=== PATIENT | female | born 1955 | race Caucasian/White ===

== ENCOUNTER 2017-02-24 21:35 | Observation (INO) ==
[2017-02-24] MEDS ORDERED: 0.9 % Sodium Chloride 1,000 ML IVC ONE (21:38)
[2017-02-24] MEDS ORDERED: Ketorolac 15 MG/ML VIAL IVP ONE (22:35)
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
[2017-02-24 22:53] LABS: Alanine Aminotransferase 15 Units/L (0-55); Albumin 3.8 g/dL (3.5-5.0); Albumin/Globulin Ratio 1.1 (1.1-2.2); Alkaline Phosphatase 104 Units/L (38-126); Aspartate Amino Transferase 16 Units/L (5-34); BUN/Creatinine Ratio 21 (6-26); Bilirubin,Total 0.4 mg/dL (0.2-1.2); Blood Urea Nitrogen 15 mg/dL (7-20); Calcium 9.2 mg/dL (8.6-10.8); Carbon Dioxide 23 mEq/L (19-29); Chloride 104 mEq/L (98-109); Globulin 3.6 g/dL (2.4-3.5); Glucose 99 mg/dL (70-99); Osmolality,Calculated 287 (280-300); Potassium 3.8 mEq/L (3.5-4.5); Sodium 138 mEq/L (136-145); Total Protein 7.4 g/dL (6.0-8.3); eGFR For African Americans > 60 (> 60); eGFR For Non-African Americans > 60 (> 60)
[2017-02-24 23:27] LABS: Bilirubin,Urine Negative (Negative); Blood,Urine Negative (Negative); Clarity,Urine Clear (Clear); Color,Urine Yellow (Yellow); Glucose,Urine (UA) Normal (Normal); Ketones,Urine Negative (Negative); Leukocyte Esterase,Urine Negative (Negative); Nitrite,Urine Negative (Negative); Protein,Urine Negative (Neg-Trace); Specific Gravity,Urine 1.024 (1.010-1.025); Urobilinogen,Urine Normal (Normal)
[2017-02-24 23:50] LABS: Basophils # 0.1 K/mcL (0.0-0.2); Basophils % 0.5 %; Eosinophils # 0.3 K/mcL (0.0-0.6); Hematocrit 36.8 % (35.3-44.9); Hemoglobin 11.8 g/dL (11.5-15.4); Immature Granulocytes % 0.6 % (0-4); Immature Platelets 2.4 % (1.1-6.1); Lymphocytes # 3.9 K/mcL (0.6-4.6); Lymphocytes % 34.4 %; Mean Corpuscular HGB Conc 32.1 g/dL (31.6-35.5); Mean Corpuscular Hemoglobin 29.1 pg (28.0-33.3); Mean Corpuscular Volume 90.6 fL (83.0-100.0); Mean Platelet Volume 9.4 fL (9.4-12.4); Monocytes % 8.6 %; Platelet Count 303 K/mcL (140-400); Red Blood Count 4.06 M/mcL (3.82-4.97); Red Cell Distribution Width 13.9 % (11.5-14.5); Segmented Neutrophils % 52.9 %
[2017-02-25] MEDS ORDERED: *HR* FentaNYL (PF) 100 MCG/2 ML VIAL IVP ONE (01:37)
[2017-02-25] MEDS ORDERED: Acetaminophen 325 MG TABLET PO PRN (03:32)
[2017-02-25] MEDS ORDERED: Naloxone 0.4 MG/ML INJ IVP PRN (03:32)
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
[2017-02-25] MEDS: *HR* Enoxaparin 40 MG/0.4 ML SYRINGE SQ SCH (05:33)
[2017-02-25] MEDS ORDERED: Ibuprofen 800 MG TABLET PO PRN (11:48)
[2017-02-25] MEDS ORDERED: tiZANidine 4 MG TABLET PO PRN (11:48)
[2017-02-25] MEDS: ALPRAZolam 0.5 MG TABLET PO PRN ×2 (12:33→22:16)
[2017-02-25] MEDS: Budesonide/Formoterol 80/4.5 MDI IH SCH (19:48)
[2017-02-25] MEDS: *HR* OxyCODONE Immed Rel 5 MG TABLET PO PRN (20:22)
[2017-02-26] MEDS: *HR* Enoxaparin 40 MG/0.4 ML SYRINGE SQ SCH (06:45)
[2017-02-26] MEDS: Budesonide/Formoterol 80/4.5 MDI IH SCH (08:09)
[2017-02-26] MEDS ORDERED: Furosemide 20 MG TABLET PO SCH (09:00)
[2017-02-26] MEDS: ALPRAZolam 0.5 MG TABLET PO PRN (09:06)
[2017-02-26] MEDS: *HR* OxyCODONE Immed Rel 5 MG TABLET PO PRN (09:11)
[2017-02-26] MEDS ORDERED: Tiotropium 18 MCG inhalation IH SCH (10:00)
[2017-02-26] MEDS ORDERED: Cholecalciferol (D-3) 1,000 UNIT TABLET PO SCH (11:15)
[2017-02-26 11:21] VITALS: BP 114/53
--- NOTE | 2017-02-26 12:43 | Discharge Summary ---
Date of Encounter: 02/26/17 Time of Encounter: 11:15 - Discharge Diagnosis (1) Generalized weakness Priority: Primary Status: Chronic (2) Frequent falls Priority: Primary Status: Acute (3) COPD (chronic obstructive pulmonary disease) Priority: Secondary Status: Chronic Qualifiers: COPD type: unspecified COPD Qualified Code(s): J44.9 - Chronic obstructive pulmonary disease, unspecified (4) Depression Priority: Secondary Status: Chronic Qualifiers: Depression Type: unspecified Qualified Code(s): F32.9 - Major depressive disorder, single episode, unspecified (5) Tobacco abuse Priority: Secondary Status: Chronic - Discharge Medications Prescriptions: Calcium Carbonate [Tums] 1,000 mg PO BID #120 tab.chew Cholecalciferol (D-3) [Vitamin D] 1,000 unit PO DAILY #30 tablet Home Medications: Alprazolam [Xanax] 0.5 mg PO TID PRN 03/27/15 [History] Budesonide/Formoterol 80/4.5 [Symbicort] 2 puff IH BIDR 03/27/15 [History] Citalopram Hydrobromide [Celexa] 20 mg PO BID 03/27/15 [History] Estrogens, Conjugated [Premarin] 0.3 mg PO DAILY 03/27/15 [History] Meclizine [Antivert] 25 mg PO TID 03/27/15 [History] Tizanidine [Zanaflex] 2 mg PO Q12H PRN 03/27/15 [History] Albuterol Sulfate [Ventolin Hfa] 2 puff IH Q4-6H PRN 02/25/17 [History] Furosemide [Lasix] 20 mg PO DAILY 02/25/17 [History] Ibuprofen 800 mg PO BID PRN 02/25/17 [History] Lisinopril [Zestril] 10 mg PO DAILY 02/25/17 [History] Pravastatin Sodium 10 mg PO DAILY 02/25/17 [History] Tiotropium [Spiriva] 1 puff IH DAILY 02/25/17 [History] Calcium Carbonate [Tums] 1,000 mg PO BID #120 tab.chew 02/26/17 [Rx] Cholecalciferol (D-3) [Vitamin D] 1,000 unit PO DAILY #30 tablet 02/26/17 [Rx] Allergies/Adverse Reactions: 3 Allergy/AdvReac Type Severity Reaction Status Date / Time aspirin Allergy Unknown Unknown Verified 07/20/16 16:32 ciprofloxacin [From Cipro] Allergy Unknown Unknown Verified 07/20/16 16:32 Hydromorphone Allergy Unknown Unknown Verified 07/20/16 16:32 Iodinated Contrast- Oral and Allergy Unknown Unknown Verified 07/20/16 16:32 IV Dye [Iodinated Contrast Media - IV Dye] morphine Allergy Unknown Unknown Verified 07/20/16 16:32 prochlorperazine Allergy Unknown Unknown Verified 07/20/16 16:32 [From Compazine] Sulfa (Sulfonamide Allergy Unknown Unknown Verified 07/20/16 16:32 Antibiotics) Tetracycline Allergy Unknown Unknown Verified 07/20/16 16:32 codeine Allergy See Verified 07/20/16 16:32 Comments diazepam [From Valium] Allergy See Verified 07/20/16 16:32 Comments Tape Allergy Unknown Unknown Uncoded 03/27/15 08:35 Date of admission: 02/25/17 03:22 Primary care physician: Marcia Cooper MD Consults: 02/25/17 03:33 Consult to Occupational Therapy [CONS] Routine Comment: Evaluate, develop and implement POC Reason for Consult: Falls Consult to Physical Therapy [CONS] Routine Comment: Evaluate, develop and implement POC Reason for Consult: Falls 02/25/17 13:25 Consult to Youth Officer [CONS] Routine Reason for SW Consult: discharge planning for home health or ECF placement Discharging clinician: Oralia Flores Anticipated date of discharge: 02/26/17 - Patient Status Disposition: Home, Self-Care Condition: Fair Functional capacity at discharge: independent ambulation Overall status at discharge: patient is progressing back to baseline - Discharge Instructions Instructions: Depression (DC) Follow Up With: Marcia Cooper MD [Primary Care Provider] - Additional Instructions: F/up with PCP in 1-2 weeks F/up with Psychiatry in 4-6 weeks - Diet and Activity Activity: increase activity as tolerated Diet: low fat, low cholesterol, low salt diet Hospital course: Ms. Johnson is a 61 year old female admitted with generalized weakness and frequent falls. Initial labs, EKG and chest x-ray done in the emergency room showed no acute abnormality. Multiple imaging studies revealed no acute fractures or trauma. Patient remained hemodynamically stable. Physical and occupational therapy evaluation was completed and recommended placement in inpatient rehabilitation. Patient was explained multiple times regarding the need for this as she is noted to live alone and possibly has underlying depression and fibromyalgia. However, she continued to adamantly refuse being placed and insisted on going home. She further declined home health services and wanted to do her therapy with her niece who is a registered nurse. Her condition was discussed in detail with her sister and niece, who agreed to be responsible for the patient and wanted her to be discharged home. Patient was noted to have vitamin D deficiency and is being started on maintenance oral vitamin D and calcium. - Time Spent with Patient Total time spent providing and/or coordinating discharge services: Greater than 30 minutes (40 min) - Constitutional Vitals: Temp Pulse Resp BP Pulse Ox 98.1 F 68 16 114/53 95 02/26/17 11:21 02/26/17 11:21 02/26/17 11:21 02/26/17 11:21 02/26/17 11:21 General appearance: Present: A&O X 3 - Cardiovascular Cardiovascular exam: Present: RRR, +S1, +S2. Absent: diastolic murmur, gallop, rubs, systolic murmur
--- NOTE | 2017-03-01 08:34 | Electrocardiograph Report ---
[place] [id number] Test Date: 2017-02-24 Pat Name: Lakisha Johnson Department: 102 Room: [facility] Gender: F First Aid Attendant: Sandy : 1955 Requested By: Jovani Sosa Order Number: [id number] Reading MD: Claude Barrett DO Measurements Intervals [place] Rate: 78 P: 55 [place]: 166 QRS: 24 QRSD: 104 T: 37 QT: 394 QTc: 427 Interpretive Statements SINUS RHYTHM Electronically Signed On 02-28-2017 9:23:13 EDT by Claude Barrett DO
== END 2017-02-26 13:20 | disposition home or self-care (01) ==
LOC: EMEROO 21:35 → 3NENU 21:35 → SUATTDRO 02-25 03:22 → 3NENU 02-25 03:48
PROVIDERS: ADMIT Internal Medicine; ATTEND Internal Medicine